=== PATIENT | female | born 1955 | race Caucasian/White ===

== ENCOUNTER 2025-05-25 12:51 | Emergency (ER) | payer MEDICARE ==
[~2025-05-25] VITALS: Ht 160 cm; Wt 88.5 kg
[~2025-05-25 12:51] MED LIST: AMOXICILLIN250 MG PO; CYMBALTA60 MG PO; HYDR25T PO; LISINOPRIL10 M1 PO; PROTONIX40 MG PO; SYNTHROID,LEVO75 MCG PO
[2025-05-25] MEDS ORDERED: Acetaminophen/Oxycodone 5 MG/325 MG TABLET PO ONE (13:15)
== END 2025-05-25 14:00 | disposition home or self-care (01) ==
LOC: ED 12:51
DX: S09.90XA Unspecified injury of head, initial encounter (principal); R42 Dizziness and giddiness; W22.03XA Walked into furniture, initial encounter; Y93.89 Activity, other specified; Y92.89 Other specified places as the place of occurrence of the external cause; Y99.8 Other external cause status